=== PATIENT | male | born 1985 | race Caucasian/White ===

== ENCOUNTER 2018-10-02 21:02 | Emergency (ER) | payer SELFPAY ==
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
--- NOTE | 2018-10-02 21:45 | XRAY Report ---
Reason: injury, pain, deformity Procedure Date: 10/02/2018 Accession Number: [id number] / [id number] Procedure: XR - Shoulder 3 View LT CPT Code: FULL RESULT: EXAM: LEFT SHOULDER RADIOGRAPHY EXAM DATE: 10/02/2018 09:30 PM. CLINICAL HISTORY: Injury, pain, deformity. COMPARISON: None. TECHNIQUE: 3 views. FINDINGS: Bones: Normal. No fracture or bone lesion. Joints: There is separation at the AC joint. The separation is at least 12 mm. Soft tissues: The visualized hemithorax is unremarkable. No soft tissue swelling. No radiopaque foreign bodies are seen in the soft tissues. IMPRESSION: AC joint separation. RADIA
[2018-10-02 22:25] VITALS: BP 143/91
== END 2018-10-02 22:39 | disposition home or self-care (01) ==
LOC: ED 21:02
DX: S43.102A Unspecified dislocation of left acromioclavicular joint, initial encounter (principal); S40.212A Abrasion of left shoulder, initial encounter; S30.810A Abrasion of lower back and pelvis, initial encounter; S20.412A Abrasion of left back wall of thorax, initial encounter; V18.0XXA Pedal cycle driver injured in noncollision transport accident in nontraffic accident, initial encounter; Y93.55 Activity, bike riding
CPT/HCPCS: 99283; 99284